=== PATIENT | female | born 1995 | race Two or more races ===

== ENCOUNTER 2016-11-04 22:11 | Emergency (ER) | payer SELFPAY | END 2016-11-04 22:57 | disposition home or self-care (01) | LOC: ED 22:11 | DX: S89.90XA Unspecified injury of unspecified lower leg, initial encounter (principal); V43.62XA Car passenger injured in collision with other type car in traffic accident, initial encounter; Y92.410 Unspecified street and highway as the place of occurrence of the external cause; Z53.21 Procedure and treatment not carried out due to patient leaving prior to being seen by health care provider ==